=== PATIENT | female | born 1975 | race African-American/Black ===

== ENCOUNTER 2017-04-19 11:18 | Emergency (ER) | payer SELFPAY ==
[~2017-04-19] VITALS: Ht 162.6 cm; Wt 126.6 kg
[2017-04-19 11:13] VITALS: BP 128/74
[~2017-04-19 11:18] MED LIST: ALBUTEROL SULF8.5 GM INH; ATROVENT HFA12.9 GM IH; AZITHROMYCIN250 MG ORAL; AZITHROMYCIN250 MG PO; FLOVENT2 PUFF1 INH; PREDNISONE20 MG ORAL; PREDNISONE20 MG PO; PREDNISONE50 MG ORAL; QVAR7.3 GM INH; Solu-MEDROL 125mg Inj IVP ONE; TRAMADOL HCL50 MG ORAL
[2017-04-19] MEDS: Ipratropium 0.02% Inh Soln 2.5ml UD HHN SCH ×3 (11:25→11:45)
[2017-04-19] MEDS: Albuterol ud Inhalation HHN SCH ×3 (11:25→11:45)
[2017-04-19 11:49] LABS: BASOPHILS % (AUTO) 0.8 % (0.0-2.0); EOSINOPHILS % (AUTO) 8.4 % (0.0-3.0); LYMPHOCYTES % (AUTO) 28.4 % (20.0-45.0); MEAN CORPUSCULAR HEMOGLOBIN 26.4 PG (27.0-31.0); MEAN CORPUSCULAR HGB CONC 31.5 G/DL (32.0-36.0); MEAN CORPUSCULAR VOLUME 84 FL (80-99); MEAN PLATELET VOLUME 5.6 FL (6.5-10.1); MONOCYTES % (AUTO) 5.5 % (1.0-10.0); PLATELET COUNT 345 K/UL (150-450); RED BLOOD COUNT 4.94 M/UL (4.20-5.40); RED CELL DISTRIBUTION WIDTH 15.2 % (11.6-14.8); WHITE BLOOD COUNT 8.5 K/UL (4.8-10.8)
[2017-04-19 11:55] LABS: ALANINE AMINOTRANSFERASE 21 U/L (3-33); ALBUMIN/GLOBULIN RATIO 1.1 (1.0-2.7); ANION GAP 14 (5-15); ASPARTATE AMINO TRANSFERASE 23 U/L (5-40); CALCIUM 8.6 mg/dL (8.6-10.2); CARBON DIOXIDE 22 mEQ/L (20-30); CHLORIDE 102 mEQ/L (98-107); CREATININE 0.7 mg/dL (0.5-0.9); GLOMERULAR FILTRATION RATE > 60 mL/min (>60); HEMOLYSIS 4; POTASSIUM 3.1 mEQ/L (3.4-4.9); SODIUM 138 mEQ/L (135-145); TOTAL PROTEIN 6.6 g/dL (6.6-8.7); TROPONIN I < 0.30 ng/mL (<=0.30)
[2017-04-19 12:05] LABS: CKMB 1.8 ng/mL (< 3.8)
[2017-04-19] MEDS ORDERED: PREDNISONE20 MG ORAL (12:38)
[2017-04-19] MEDS ORDERED: ALBUTEROL SULF8.5 GM INH (12:38)
[2017-04-19] MEDS ORDERED: QVAR7.3 GM INH (12:38)
[2017-04-19 13:01] VITALS: BP 109/55
[2017-04-19 13:02] VITALS: BP 109/55
--- NOTE | 2017-04-19 15:28 | Emergency Room Report ---
History of Present Illness General Chief Complaint: Asthma Source: Patient Present Illness HPI 41-year-old female presents to ED for evaluation. Per EMS patient's been having shortness of breath since this morning. Has history of asthma with diffuse wheezing. Was started on breathing treatments. Upon arrival patient states she does feel better but is still wheezing. Denies smoking or drug use. Denies fevers or chills. States that her asthma is been getting progressively worse for the last one week, unrelieved with inhaler. I sick contacts or recent travel. No other aggravating or factors. Denies any other associated symptoms Allergies: Coded Allergies: No Known Allergies (Unverified , 06/27/12) Patient History Past Medical History: asthma Past Surgical History: none Pertinent Family History: none Social History: Denies: smoking, alcohol use, drug use Last Menstrual Period: UNK Now: No Immunizations: UTD Reviewed Nursing Documentation: PMH: Agreed, PSxH: Agreed Nursing Documentation-PMH Hx Asthma: Yes Review of Systems All Other Systems: negative except mentioned in HPI Physical Exam Vital Signs Date Time Temp Pulse Resp B/P (MAP) Pulse Ox O2 Delivery O2 Flow Rate FiO2 04/19/17 11:04 98.8 106 18 124/80 97 Room Air Sp02 EP Interpretation: reviewed, normal General Appearance: no apparent distress, alert, GCS 15, non-toxic Head: normocephalic, atraumatic Eyes: bilateral eye normal inspection, bilateral eye PERRL ENT: hearing grossly normal, normal pharynx, no angioedema, normal voice Neck: full range of motion, supple/symm/no masses Respiratory: chest non-tender, normal breath sounds, speaking full sentences, wheezing Cardiovascular #1: regular rate, rhythm, no edema Cardiovascular #2: 2+ carotid (R), 2+ carotid (L), 2+ radial (R), 2+ radial (L) , 2+ dorsalis pedis (R), 2+ dorsalis pedis (L) Gastrointestinal: normal bowel sounds, non tender, soft, non-distended, no guarding, no rebound Rectal: deferred Genitourinary: normal inspection, no CVA tenderness Musculoskeletal: back normal, gait/station normal, normal range of motion, non- tender Neurologic: alert, oriented x3, responsive, motor strength/tone normal, sensory intact, speech normal Psychiatric: judgement/insight normal, memory normal, mood/affect normal, no suicidal/homicidal ideation Reflexes: 3+ bicep (R), 3+ bicep (L), 3+ tricep (R), 3+ tricep (L), 3+ knee (R) , 3+ knee (L) Skin: normal color, no rash, warm/dry, well hydrated Lymphatic: no adenopathy Medical Decision Making Diagnostic Impression: Primary Impression: Asthma exacerbation ER Course Hospital Course 41-year-old female presents to ED complaining of SOB, wheezing Differential diagnoses include: URI, bronchitis, asthma/COPD, pneumonia Clinical course Patient placed on stretcher. After initial history, physical exam reveals a female in mild distress. Bilateral TM unremarkable. No pharyngeal erythema. No tonsillar exudates. No lymphadenopathy. diffuse wheezing I ordered labs, IV fluids, nebs, solumedrol, ekg, chest x-ray. Labs reviewed- no leukocytosis noted, hemoglobin/hematocrit stable, electrolytes okay Chest x-ray shows no infiltrate EKG - NSR, no acute changes identified On reassessment patient states she feels better. Patient can be safely discharged to home. Patient agrees with plan. Diagnosis - asthma exacerbation Stable and discharged home with prescriptions for prednisone, albuterol, qvar. Instructed to followup with PMD. Return to ED if symptoms recur or worsen Labs Test 04/19/17 11:30 White Blood Count 8.5 K/UL (4.8-10.8) Red Blood Count 4.94 M/UL (4.20-5.40) Hemoglobin 13.0 G/DL (12.0-16.0) Hematocrit 41.4 % (37.0-47.0) Mean Corpuscular Volume 84 FL (80-99) Mean Corpuscular Hemoglobin 26.4 PG (27.0-31.0) Mean Corpuscular Hemoglobin Concent 31.5 G/DL (32.0-36.0) Red Cell Distribution Width 15.2 % (11.6-14.8) Platelet Count 345 K/UL (150-450) Mean Platelet Volume 5.6 FL (6.5-10.1) Neutrophils (%) (Auto) 57.0 % (45.0-75.0) Lymphocytes (%) (Auto) 28.4 % (20.0-45.0) Monocytes (%) (Auto) 5.5 % (1.0-10.0) Eosinophils (%) (Auto) 8.4 % (0.0-3.0) Basophils (%) (Auto) 0.8 % (0.0-2.0) Sodium Level 138 mEQ/L (135-145) Potassium Level 3.1 mEQ/L (3.4-4.9) Chloride Level 102 mEQ/L (98-107) Carbon Dioxide Level 22 mEQ/L (20-30) Anion Gap 14 (5-15) Blood Urea Nitrogen 4 mg/dL (7-23) Creatinine 0.7 mg/dL (0.5-0.9) Estimat Glomerular Filtration Rate > 60 mL/min (>60) Glucose Level 85 mg/dL (74-106) Calcium Level 8.6 mg/dL (8.6-10.2) Total Bilirubin 0.5 mg/dL (0.0-1.2) Aspartate Amino Transf (AST/SGOT) 23 U/L (5-40) Alanine Aminotransferase (ALT/SGPT) 21 U/L (3-33) Alkaline Phosphatase 45 U/L (35-104) Total Creatine Kinase 104 U/L (26-140) Creatine Kinase MB 1.8 ng/mL (< 3.8) Creatine Kinase MB Relative Index 1.7 Troponin I < 0.30 ng/mL (<=0.30) Pro-B-Type Natriuretic Peptide 7 pg/mL (0-125) Total Protein 6.6 g/dL (6.6-8.7) Albumin 3.5 g/dL (3.5-5.2) Globulin 3.1 g/dL Albumin/Globulin Ratio 1.1 (1.0-2.7) EKG Diagnostic Results Rate: normal Rhythm: NSR ST Segments: no acute changes ASA given to the pt in ED: No Rhythm Strip Diag. Results EP Interpretation: yes Rhythm: NSR, no PVC's, no ectopy Chest X-Ray Diagnostic Results Chest X-Ray Diagnostic Results : Chest X-Ray Ordered: Yes # of Views/Limited/Complete: 1 View Indication: Shortness of Breath EP Interpretation: Yes Interpretation: no consolidation, no effusion, no pneumothorax, no acute cardiopulmonary disease Impression: No acute disease Electronically Signed by: Electronically signed by Blake Hendricks MD Last Vital Signs Date Time Temp Pulse Resp B/P (MAP) Pulse Ox O2 Delivery O2 Flow Rate FiO2 04/19/17 13:02 98.6 104 18 109/55 97 Room Air Status: improved Disposition: HOME, SELF-CARE Condition: Stable Scripts Albuterol Sulfate* (ALBUTEROL SULFATE MDI*) 8.5 Gm Hfa.aer.ad 2 PUFF INH Q6H, #1 EA 0 Refills Prov: BLAKE HENDRICKS M.D. 04/19/17 Prednisone* (PREDNISONE*) 20 Mg Tablet 40 MG ORAL DAILY, #10 TAB Prov: BLAKE HENDRICKS M.D. 04/19/17 Beclomethasone Dipropionate 40MCG Oral Inh (QVAR 40*) 7.3 Gm Aer.w.adap 1 PUFF INH TWICE A DAY, #7.3 GM 0 Refills Prov: BLAKE HENDRICKS M.D. 04/19/17 Referrals: NOT CHOSEN IPA/,REFERRING (PCP) Patient Instructions: Asthma, Adult BLAKE HENDRICKS M.D. Apr 19, 2017 15:28
== END 2017-04-19 12:58 | disposition home or self-care (01) ==
LOC: EDBD 11:18 → EMR 12:53
DX: J45.901 Unspecified asthma with (acute) exacerbation (principal)
CPT/HCPCS: 36415; 71010; 80053; 82550; 82553; 83880; 84484; 85025; 94640; 96374; 99284; J2930

== ENCOUNTER 2018-01-02 08:29 | Emergency (ER) | payer OTHER ==
[~2018-01-02] VITALS: Ht 162.6 cm; Wt 119.3 kg
[~2018-01-02 08:29] MED LIST changes: -Solu-MEDROL 125mg Inj IVP ONE
[2018-01-02 08:37] VITALS: BP 131/80
--- NOTE | 2018-01-02 08:58 | Emergency Room Report ---
History of Present Illness General Chief Complaint: Chest Pain Source: Patient Present Illness HPI Patient presents with complaints of sensation of'rattling'in her chest this morning She feels that her asthma has been acting up recently Denies any change with position denies any vomiting or diarrhea denies any radiation of the discomfort There is a palpitation component to it as well Denies any pleurisy Patient had also been experiencing low back discomfort patient reports that she has had low back problems in the past however she felt some radiation into both buttock area Denies any sensory deficit denies any loss of control of bowel or urination Denies any recent trauma Allergies: Coded Allergies: No Known Allergies (Unverified , 06/27/12) Patient History Past Medical History: see triage record Pertinent Family History: none Last Menstrual Period: 12/31/17 Now: No Reviewed Nursing Documentation: PMH: Agreed; PSxH: Agreed Nursing Documentation-PM Past Medical History: No History, Except For Hx Asthma: Yes Review of Systems All Other Systems: negative except mentioned in HPI Physical Exam Vital Signs Date Time Temp Pulse Resp B/P (MAP) Pulse Ox O2 Delivery O2 Flow Rate FiO2 01/02/18 08:31 98.3 85 18 131/80 96 Room Air 98.2 Sp02 EP Interpretation: reviewed, normal General Appearance: well appearing, no apparent distress Head: normocephalic, atraumatic Eyes: bilateral eye PERRL, bilateral eye EOMI ENT: hearing grossly normal, normal pharynx, TMs + canals normal, uvula midline Neck: full range of motion, supple, no meningismus, no bony tend Respiratory: no respiratory distress, no retraction, no accessory muscle use, wheezing - Bilaterally Cardiovascular #1: normal peripheral pulses, regular rate, rhythm, no edema, no gallop, no JVD, no murmur Gastrointestinal: normal bowel sounds, non tender, soft, no mass, no organomegaly, non-distended, no guarding, no hernia, no pulsatile mass, no rebound Genitourinary: no CVA tenderness Musculoskeletal: normal inspection - Patient ambulatory, no focal deficit Neurologic: oriented x3, responsive, shearer operator III-XII nml as tested, motor strength/ tone normal, sensory intact Psychiatric: mood/affect normal Skin: normal color, no rash, warm/dry, palpation normal Lymphatic: normal inspection, no adenopathy Medical Decision Making Diagnostic Impression: Primary Impression: Chest pain Additional Impression: Asthma exacerbation ER Course Patient had initially presented the complains of chest pain however examination reveals wheezing and asthma exacerbation Patient on repeat evaluation has done better with breathing treatment steroids EKG was normal And the patient is stable for close outpatient follow-up Rhythm Strip Diag. Results EP Interpretation: yes Rate: 67 Rhythm: NSR, no PVC's, no ectopy Last Vital Signs Date Time Temp Pulse Resp B/P (MAP) Pulse Ox O2 Delivery O2 Flow Rate FiO2 01/02/18 08:37 98.2 83 18 131/80 96 Room Air 98.2 Status: improved Disposition: HOME, SELF-CARE Condition: Improved Scripts Albuterol Sulfate* (ALBUTEROL SULFATE MDI*) 8.5 Gm Hfa.aer.ad 2 PUFF INH Q6H, #1 EA 0 Refills Prov: Kyrie Amanda DO 01/02/18 Ibuprofen* (MOTRIN*) 600 Mg Tablet 600 MG ORAL Q8H PRN for For Pain, #30 TAB 0 Refills Prov: Kyrie Amanda DO 01/02/18 Prednisone* (PREDNISONE*) 20 Mg Tablet 20 MG ORAL BID, #12 TAB Prov: Kyrie Amanda DO 01/02/18 Additional Instructions: Patient is provided with the discharge instructions notified to follow up with primary doctor in the next 2-3 days otherwise return to the er with any worsening symptoms. Please note that this report is being documented using [employer] technology. This can lead to erroneous entry secondary to incorrect interpretation by the dictating instrument. Kyrie Amanda DO January 02, 2018 08:57
[2018-01-02] MEDS ORDERED: Ipratropium 0.02% Inh Soln 2.5ml UD HHN ONE (09:00)
[2018-01-02] MEDS ORDERED: Ketorolac 60mg Inj IM ONE (09:00)
[2018-01-02] MEDS ORDERED: Albuterol ud Inhalation HHN ONE (09:00)
[2018-01-02] MEDS ORDERED: ALBUTEROL SULF8.5 GM INH (09:53)
[2018-01-02] MEDS ORDERED: PREDNISONE20 MG ORAL (09:53)
[2018-01-02] MEDS ORDERED: IBUPROFEN600 MG ORAL (09:53)
[2018-01-02 10:00] VITALS: BP 122/53
== END 2018-01-02 10:00 | disposition home or self-care (01) ==
LOC: EMR 09:02
DX: R07.89 Other chest pain (principal); J45.901 Unspecified asthma with (acute) exacerbation
CPT/HCPCS: 94640; 94664; 96372; 99284; J7512

== ENCOUNTER 2018-12-16 17:19 | Emergency (ER) | payer OTHER ==
[~2018-12-16] VITALS: Ht 162.6 cm; Wt 129.3 kg
[~2018-12-16 17:19] MED LIST changes: +IBUPROFEN600 MG ORAL
[2018-12-16] MEDS ORDERED: GABAPENTIN400 MG ORAL (17:35)
[2018-12-16 17:48] VITALS: BP 138/82
[2018-12-16 18:23] LABS: BASOPHILS % (AUTO) 0.7 % (0.0-2.0); EOSINOPHILS % (AUTO) 1.8 % (0.0-3.0); HEMATOCRIT 37.3 % (37.0-47.0); HEMOGLOBIN 12.1 G/DL (12.0-16.0); LYMPHOCYTES % (AUTO) 21.4 % (20.0-45.0); MEAN CORPUSCULAR VOLUME 84 FL (80-99); MONOCYTES % (AUTO) 6.2 % (1.0-10.0); NEUTROPHILS % (AUTO) 69.9 % (45.0-75.0); PLATELET COUNT 315 K/UL (150-450); RED BLOOD COUNT 4.46 M/UL (4.20-5.40); RED CELL DISTRIBUTION WIDTH 13.6 % (11.6-14.8); WHITE BLOOD COUNT 9.6 K/UL (4.8-10.8)
[2018-12-16 18:27] LABS: APPEARANCE,URINE CLEAR; BILIRUBIN, URINE NEGATIVE (NEGATIVE); COLOR,URINE PALE YELLOW; GLUCOSE, URINE (UA) NEGATIVE (NEGATIVE); KETONES,URINE 4+ (NEGATIVE); LEUKOCYTE ESTERASE ,URINE 3+ (NEGATIVE); NITRITE,URINE NEGATIVE (NEGATIVE); PH,URINE 5 (4.5-8.0); PROTEIN,URINE NEGATIVE (NEGATIVE); UROBILINOGEN,URINE NORMAL MG/DL (0.0-1.0)
[2018-12-16 18:34] LABS: ANION GAP 12 mmol/L (5-15); BLOOD UREA NITROGEN 8 mg/dL (7-18); CALCIUM 9.1 MG/DL (8.5-10.1); CARBON DIOXIDE 24 MMOL/L (21-32); CHLORIDE 99 MMOL/L (98-107); CREATININE 0.8 MG/DL (0.55-1.30); POTASSIUM 3.5 MMOL/L (3.5-5.1); SODIUM 135 MMOL/L (136-145)
[2018-12-16 18:47] LABS: ALANINE AMINOTRANSFERASE 28 U/L (12-78); ALBUMIN 3.1 G/DL (3.4-5.0); ALBUMIN/GLOBULIN RATIO 0.7 (1.0-2.7); ALKALINE PHOSPHATASE 67 U/L (46-116); ASPARTATE AMINO TRANSFERASE 20 U/L (15-37); BILIRUBIN,TOTAL 0.7 MG/DL (0.2-1.0); CKMB 1.6 NG/ML (0.0-3.6)
[2018-12-16] MEDS ORDERED: LORazepam 1mg tab ORAL ONE (19:00)
--- NOTE | 2018-12-16 19:11 | Diagnostic Imaging Report ---
EXAM: XR Chest, 1 View CLINICAL HISTORY: ABD PAIN TECHNIQUE: Frontal view of the chest. COMPARISON: No relevant prior studies available. FINDINGS: Lungs: No consolidation. Pleural space: Unremarkable. No pneumothorax. Heart: cardiomegaly. Mediastinum: Unremarkable. Bones/joints: No acute fracture. IMPRESSION: No acute cardiopulmonary disease.
[2018-12-16] MEDS ORDERED: IBUPROFEN600 MG ORAL (19:12)
[2018-12-16] MEDS ORDERED: ATIVAN0.5 MG ORAL (19:12)
[2018-12-16 19:15] VITALS: BP 129/74
[2018-12-16 19:35] VITALS: BP 129/74
--- NOTE | 2018-12-16 21:10 | Emergency Room Report ---
History of Present Illness General Chief Complaint: General Complaint Source: Patient (PROSPER ASHTON) Present Illness HPI The patient is a 43-year-old female presenting for right-sided shoulder pain, R chest pain, neck pain, and nausea x 2 days. Pain is a 8 out of 10 dull ache and does not radiate. Worse with movement. She has not tried any pain medications yet. She does admit to feeling more anxious as she is undergoing some stress at home. She denies other symptoms including fever, chills, shortness of breath (PROSPER ASHTON) Allergies: Coded Allergies: No Known Allergies (Unverified , 06/27/12) Patient History Past Medical History: see triage record Pertinent Family History: none Last Menstrual Period: unknown Reviewed Nursing Documentation: PMH: Agreed; PSxH: Agreed (PROSPER ASHTON) Nursing Documentation-PMH Past Medical History: No History, Except For Hx Cardiac Problems: No - TMJ Hx Hypertension: No - DJD Hx Pacemaker: No Hx Asthma: Yes Hx COPD: No Hx Diabetes: No Hx Cancer: No Hx Gastrointestinal Problems: No Hx Dialysis: No History Of Psychiatric Problem: No Hx Neurological Problems: No Hx Cerebrovascular Accident: No Hx Seizures: No (PROSPER ASHTON) Review of Systems All Other Systems: negative except mentioned in HPI (PROSPER ASHTON) Physical Exam Vital Signs Date Time Temp Pulse Resp B/P (MAP) Pulse Ox O2 Delivery O2 Flow Rate FiO2 12/16/18 17:30 98.2 71 16 94 Room Air 12/16/18 17:48 138/82 Sp02 EP Interpretation: reviewed, normal General Appearance: no apparent distress, alert, GCS 15, non-toxic Head: normocephalic, atraumatic Eyes: bilateral eye normal inspection, bilateral eye PERRL ENT: hearing grossly normal, normal pharynx, no angioedema, normal voice Neck: full range of motion, supple/symm/no masses, tender lateral Respiratory: chest non-tender, lungs clear, normal breath sounds, speaking full sentences Cardiovascular #1: regular rate, rhythm, no edema Gastrointestinal: normal bowel sounds, non tender, soft, non-distended, no guarding, no rebound Musculoskeletal: back normal, gait/station normal, normal range of motion, tender - R deltoid and R upper chest wall Neurologic: alert, oriented x3, responsive, motor strength/tone normal, sensory intact, speech normal Psychiatric: judgement/insight normal, memory normal, no suicidal/homicidal ideation, anxious Skin: normal color, no rash, warm/dry, well hydrated (PROSPER ASHTON) Medical Decision Making PA Attestation Dr. Ramirez is my supervising physician. Patient management was discussed with my supervising physician (PROSPER ASHTON) Diagnostic Impression: Primary Impression: Anxiety ER Course The patient is a 43 female presenting for generalized symptoms including anxiety and muscular pain with nausea DDx considered but not limited to: Anxiety, muscle strain, asthma, ACS, among others PE: Afebrile. Mildly anxious RRR. Lungs CTA bilat Abd soft and non tender TTP over the R shoulder and chest Labs unremarkable. Symptoms likely due to stress. Pt has had anxiety in past Pt will start on low dose ativan and states she will F/u with PCP this week. ER precautions given Laboratory Tests Test 12/16/18 17:59 White Blood Count 9.6 K/UL (4.8-10.8) Red Blood Count 4.46 M/UL (4.20-5.40) Hemoglobin 12.1 G/DL (12.0-16.0) Hematocrit 37.3 % (37.0-47.0) Mean Corpuscular Volume 84 FL (80-99) Mean Corpuscular Hemoglobin 27.2 PG (27.0-31.0) Mean Corpuscular Hemoglobin Concent 32.5 G/DL (32.0-36.0) Red Cell Distribution Width 13.6 % (11.6-14.8) Platelet Count 315 K/UL (150-450) Mean Platelet Volume 5.2 FL (6.5-10.1) L Neutrophils (%) (Auto) 69.9 % (45.0-75.0) Lymphocytes (%) (Auto) 21.4 % (20.0-45.0) Monocytes (%) (Auto) 6.2 % (1.0-10.0) Eosinophils (%) (Auto) 1.8 % (0.0-3.0) Basophils (%) (Auto) 0.7 % (0.0-2.0) Urine Color Pale yellow Urine Appearance Clear Urine pH 5 (4.5-8.0) Urine Specific [place] 1.010 (1.005-1.035) Urine Protein Negative (NEGATIVE) Urine Glucose (UA) Negative (NEGATIVE) Urine Ketones 4+ (NEGATIVE) H Urine Blood 1+ (NEGATIVE) H Urine Nitrite Negative (NEGATIVE) Urine Bilirubin Negative (NEGATIVE) Urine Urobilinogen Normal MG/DL (0.0-1.0) Urine Leukocyte Esterase 3+ (NEGATIVE) H Urine RBC 0-2 /HPF (0 - 2) Urine WBC 5-10 /HPF (0 - 2) H Urine Squamous Epithelial Cells Few /LPF (NONE/OCC) Urine Bacteria Few /HPF (NONE) Urine HCG, Qualitative Negative (NEGATIVE) Sodium Level 135 MMOL/L (136-145) L Potassium Level 3.5 MMOL/L (3.5-5.1) Chloride Level 99 MMOL/L (98-107) Carbon Dioxide Level 24 MMOL/L (21-32) Anion Gap 12 mmol/L (5-15) Blood Urea Nitrogen 8 mg/dL (7-18) Creatinine 0.8 MG/DL (0.55-1.30) Estimate Glomerular Filtration Rate > 60 mL/min (>60) Glucose Level 74 MG/DL (74-106) Calcium Level 9.1 MG/DL (8.5-10.1) Total Bilirubin 0.7 MG/DL (0.2-1.0) Aspartate Amino Transferase (AST) 20 U/L (15-37) Alanine Aminotransferase (ALT) 28 U/L (12-78) Alkaline Phosphatase 67 U/L (46-116) Creatine Kinase MB 1.6 NG/ML (0.0-3.6) Troponin I 0.003 ng/mL (0.000-0.056) Total Protein 7.3 G/DL (6.4-8.2) Albumin 3.1 G/DL (3.4-5.0) L Globulin 4.2 g/dL Albumin/Globulin Ratio 0.7 (1.0-2.7) L Lipase 331 U/L (73-393) Lab Results Impression labs unremarkable (TERZIANPROSPER P.A.) Chest X-Ray Diagnostic Results Chest X-Ray Diagnostic Results : Chest X-Ray Ordered: Yes # of Views/Limited/Complete: 1 View Indication: Chest Pain EP Interpretation: Yes PA Xray: Interpretation reviewed, by supervising MD, and agrees with findings. Interpretation: no consolidation, no effusion, no pneumothorax, no acute cardiopulmonary disease Impression: No acute disease Electronically Signed by: Prosper Ashton PA-C (PROSPER ASHTON) Chest X-Ray Diagnostic Results : Electronically Signed by: Cheryl Banerjee documentation of Xray reviewed by me and is accurate, Srinivasan Ramirez MD (Srinivasan Ramirez MD) Last Vital Signs Date Time Temp Pulse Resp B/P (MAP) Pulse Ox O2 Delivery O2 Flow Rate FiO2 12/16/18 19:35 98.4 76 16 129/74 98 Room Air Status: improved (PROSPER ASHTON) Disposition: HOME, SELF-CARE Condition: Improved Scripts Lorazepam* (ATIVAN*) 0.5 Mg Tablet 0.5 MG ORAL THREE TIMES A DAY for anxiety, #15 TAB Prov: LUKASANBRENDAY P.A. 12/16/18 Ibuprofen* (MOTRIN*) 600 Mg Tablet 600 MG ORAL Q8H PRN for For Pain, #30 TAB 0 Refills Prov: CRUZZIANPROSPER P.A. 12/16/18 Patient Instructions: Panic Attacks Additional Instructions: I discussed my findings with the patient. All questions and concerns have been answered. Treatment and medication compliance have been addressed. I advised the patient that they need to follow up with PMD in 3-5 days. Return to ED if symptoms worsen, new symptoms arise, or if needed for any reason. Patient verbalized understanding of discharge instructions. PROSPER ASHTON December 16, 2018 21:10 Srinivasan Ramirez MD December 18, 2018 22:33
== END 2018-12-16 19:35 | disposition home or self-care (01) ==
LOC: EMR 17:20
DX: F41.9 Anxiety disorder, unspecified (principal); R07.9 Chest pain, unspecified; J45.909 Unspecified asthma, uncomplicated; M19.90 Unspecified osteoarthritis, unspecified site
CPT/HCPCS: 36415; 71045; 80053; 81003; 81025; 82553; 83690; 84484; 85025; 96374; 99284; J2405

== ENCOUNTER 2019-01-19 10:15 | Emergency (ER) | payer MEDICAID, OTHER ==
[~2019-01-19] VITALS: Ht 162.6 cm; Wt 124.7 kg
[~2019-01-19 10:15] MED LIST changes: +ATIVAN0.5 MG ORAL; +GABAPENTIN400 MG ORAL
--- NOTE | 2019-01-19 10:30 | NUR ---
ED Nurse Note: pt walked in to ED with cane due to tripped and fell injury yesterday. per pt, walked on the uneven paved road and tripped. unable to remember if hitted head or not. c/o pain on both wrists, left ankle, and left big toe. unable to weight on left side due to pain. AAO x4. respirations even and non-labored noted. pt took lyft to ED. will wait for the further order.
[2019-01-19] MEDS ORDERED: NORCO 5-325 TA1 EACH ORAL (11:36)
[2019-01-19 11:50] VITALS: BP 131/86
--- NOTE | 2019-01-19 11:50 | NUR ---
ED Nurse Note: pt cleared to be d/c per ERMD, ortho shoe and charity wrap applied per ERMD order, pt discharge and aftercare instruction w/ prescription provided, pt education done via discussion and handout, pt advised to follow up with pcp or return to ed if changes in condition, pt verbalized understanding and agrees with plan, vss, ambulatory w/ steady gait, left w/ all belongings.
--- NOTE | 2019-01-19 13:50 | Emergency Room Report ---
History of Present Illness General Chief Complaint: Lower Extremity Injury Source: Patient Present Illness HPI Patient presents to the emergency department today complaining of left foot pain. Patient states that she had a mechanical fall onto her left foot. She is complaining of pain around the area of her great toe on the left foot. In addition she complains of knee pain and right wrist pain. She denies any trauma to her head neck chest or abdomen. No other complaints are noted. Symptoms noted to be moderate. Patient states it is difficult for her to ambulate because of the severity of the pain. No other modifying factors. No other associated signs and symptoms. No other complaints were noted. Allergies: Coded Allergies: No Known Allergies (Unverified , 06/27/12) Patient History Past Medical History: asthma Past Surgical History: none Pertinent Family History: none Social History: Denies: smoking, alcohol use, drug use Last Menstrual Period: 01/10/19 Reviewed Nursing Documentation: PMH: Agreed; PSxH: Agreed Nursing Documentation-PMH Past Medical History: No History, Except For Hx Cardiac Problems: No - TMJ Hx Hypertension: No - DJD Hx Pacemaker: No Hx Asthma: Yes Hx COPD: No Hx Diabetes: No Hx Cancer: No Hx Gastrointestinal Problems: No Hx Dialysis: No Hx Neurological Problems: No Hx Cerebrovascular Accident: No Hx Seizures: No Review of Systems All Other Systems: negative except mentioned in HPI Physical Exam Vital Signs Date Time Temp Pulse Resp B/P (MAP) Pulse Ox O2 Delivery O2 Flow Rate FiO2 01/19/19 10:19 97.9 84 16 139/87 (104) 98 Room Air Sp02 EP Interpretation: reviewed, normal General Appearance: normal inspection, well appearing, no apparent distress, alert Head: atraumatic Eyes: bilateral eye normal inspection ENT: normal ENT inspection, hearing grossly normal, normal voice Neck: normal inspection, full range of motion, supple, no bony tend Respiratory: normal inspection, lungs clear, normal breath sounds, no respiratory distress, no retraction, no wheezing Cardiovascular #1: regular rate, rhythm, no edema Gastrointestinal: normal inspection, normal bowel sounds, non tender, soft, no guarding, no hernia Genitourinary: no CVA tenderness Musculoskeletal: back normal, tender - Tender left great toe, left knee, right wrist. No snuffbox tenderness. Neurologic: normal inspection, alert, responsive, speech normal Psychiatric: normal inspection, judgement/insight normal, mood/affect normal Skin: normal inspection, normal color, no rash Medical Decision Making Diagnostic Impression: Primary Impression: Toe fracture, left ER Course Patient presents to the emergency department today complaining of left great toe pain after fall. Differential considerations include fracture dislocation versus strain. Patient also complains of pain in her left foot her left knee as well as her right wrist. Because of this multiple x-rays were performed. X- rays were noted to be negative except for her foot x-ray which shows evidence of acute left great toe fracture. Because of this patient was placed in a hard shoe. Patient was not splinted because this did not require splinting. She was advised to stay off her feet and then to follow-up as an outpatient. Patient states that she cannot use crutches but she does have a walker. She was fall advised to follow with podiatry in 1 week.. Patient is advised to follow up with primary doctor in 2-3 days and return the emergency room for any worsening symptoms and as needed. Other X-Ray Diagnostic Results Other X-Ray Diagnostic Results #1: X-Ray ordered: Left knee # of Views/Limited Vs Complete: 3 View Indication: Pain EP Interpretation: Yes Interpretation: no dislocation, no soft tissue swelling, no fractures Impression: No acute disease Electronically Signed by: Electronically signed by Desean Reinoso MD Other X-Ray Diagnostic Results #2: X-Ray ordered: Left foot # of Views/Limited Vs Complete: 3 View Indication: Pain EP Interpretation: Yes Interpretation: other - Distal phalange toe great fracture. No dislocation. Positive soft tissue swelling Impression: Other - Acute distal phalange great toe fracture Electronically Signed by: Electronically signed by Desean Reinoso MD Other X-Ray Diagnostic Results #3: X-Ray ordered: Right wrist x-ray # of Views/Limited Vs Complete: 3 View Indication: Pain Interpretation: no dislocation, no soft tissue swelling, no fractures Impression: No acute disease Electronically Signed by: Electronically signed by Desean Reinoso MD Last Vital Signs Date Time Temp Pulse Resp B/P (MAP) Pulse Ox O2 Delivery O2 Flow Rate FiO2 01/19/19 11:50 97.8 80 16 131/86 99 Room Air Status: improved Disposition: HOME, SELF-CARE Condition: Stable Scripts Hydrocodone Bit/Acetaminophen 5-325* (NORCO 5-325*) 1 Each Tablet 1 TAB ORAL Q6H PRN for For Pain, #10 TAB 0 Refills Prov: Desean Reinoso MD 01/19/19 Patient Instructions: Toe Fracture, [id number] Desean Reinoso MD Jan 19, 2019 13:50
--- NOTE | 2019-01-19 17:47 | Diagnostic Imaging Report ---
Indication: Pain, trauma Technique: 3 views left foot Comparison: none Findings: There is an intra-articular corner fracture of the posterior base of the first distal phalanx. This is distracted by a few millimeters. No other acute fractures. No dislocation Impression: Positive for first distal phalangeal fracture This agrees with the preliminary interpretation provided by the emergency room physician
--- NOTE | 2019-01-19 17:47 | Diagnostic Imaging Report ---
Indications: Trauma, pain Technique: Three views of the left knee Comparison: None Findings: No acute fractures. No dislocations. Joint spaces are preserved. No radiopaque foreign body. Normal mineralization. Impression: No acute process This agrees with the preliminary interpretation provided by the emergency room physician
--- NOTE | 2019-01-19 17:47 | Diagnostic Imaging Report ---
Indication: Pain, trauma Technique: 3 views of the left ankle Comparison: none Findings: No acute fractures. No dislocations. The joint spaces are preserved. There is a small plantar spur Impression: No acute process This agrees with the preliminary interpretation provided by the emergency room physician
--- NOTE | 2019-01-19 17:48 | Diagnostic Imaging Report ---
Clinical Indication:Trauma, pain Technique: 3 views of the right wrist Comparison: None Findings: No acute fractures. No dislocations. The joint spaces are preserved. Impression: No acute bony trauma This agrees with the preliminary interpretation provided by the emergency room physician
== END 2019-01-19 11:50 | disposition home or self-care (01) ==
LOC: EMR 10:52
DX: S92.422A Displaced fracture of distal phalanx of left great toe, initial encounter for closed fracture (principal); W19.XXXA Unspecified fall, initial encounter; Y92.9 Unspecified place or not applicable; J45.909 Unspecified asthma, uncomplicated; M25.531 Pain in right wrist; M25.562 Pain in left knee
CPT/HCPCS: 99284